=== PATIENT | female | born 1990 | race Two or more races ===

== ENCOUNTER 2020-03-02 12:02 | Emergency (ER) | payer OTHER ==
[2020-03-02 12:07] VITALS: BP 107/77; PULSE 90; TEMP 98.4; BMI 26.9
== END 2020-03-02 14:29 | disposition home or self-care (01) ==
LOC: JER 12:02
DX: R53.83 Other fatigue (principal)
CPT/HCPCS: 71046-TC-FY; 99284-25; C9803; U0003